=== PATIENT | male | born 1990 | race Caucasian/White ===

== ENCOUNTER 2016-04-23 02:00 | Emergency (ER) | payer OTHER ==
[2016-04-23 03:08] LABS: ACETAMINOPHEN < 10 ug/mL (10-30)
[2016-04-23 07:08] VITALS: BP 120/57
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
== END 2016-04-23 08:20 ==
LOC: FB.ED 02:00
DX: F32.9 Major depressive disorder, single episode, unspecified (principal); F10.129 Alcohol abuse with intoxication, unspecified; F34.1 Dysthymic disorder; X78.9XXA Intentional self-harm by unspecified sharp object, initial encounter; Y90.0 Blood alcohol level of less than 20 mg/100 ml
CPT/HCPCS: 36415; 80053; 80305; 84443; 85025; 93005; 99285; G0479; G0480

== ENCOUNTER 2018-10-27 00:35 | Emergency (ER) | payer OTHER ==
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
[2018-10-27 07:18] VITALS: BP 132/105; PULSE 119
== END 2018-10-27 01:11 | disposition left against medical advice (07) ==
LOC: FB.ED 00:35
DX: Z53.21 Procedure and treatment not carried out due to patient leaving prior to being seen by health care provider (principal)
CPT/HCPCS: 99282

== ENCOUNTER 2018-12-28 02:53 | Emergency (ER) | payer SELFPAY ==
[2018-12-28 04:06] VITALS: BP 140/89; PULSE 110
--- NOTE | 2018-12-28 10:24 | ER ---
DATE SEEN: 12/28/2018 CHIEF COMPLAINT: Depression. HISTORY OF PRESENT ILLNESS: A 28-year-old male who was brought in by taxi. He is not sure why he is here. Apparently, he had been drinking some alcohol and also cut himself on the left arm. He denies any intention to kill himself. However, he endorses depression that he has had since he was 16. In fact, I recently saw him in the clinic about 2 to 3 weeks ago and started him on Prozac 20 mg a day. Tonight, he admits that he had been drinking. He denies any intention to hurt himself. He feels overwhelmed. He lives with his girlfriend and 3 children who called the police today. He took the taxi after the police wanted to bring him in. He states that he does not know why he is here. REVIEW OF SYSTEMS: He denies headache, fever, or chills. All other systems were negative. ALLERGIES: None. SOCIAL HISTORY: He drinks, also a smoker and uses marijuana. PHYSICAL EXAMINATION: VITAL SIGNS: On exam, his blood pressure is 140/89, temperature is 97.0, pulse 110. HEENT: Head: Atraumatic. Eyes: PERRL. SKIN: There are several superficial abrasions on the extensor aspect of the left forearm. MENTAL STATUS: He has good eye contact. He is inebriated, but alert and answers questions well. Suicidal ideation and plan were convincingly denied. LABORATORY DATA: White cell count was normal. He had normal electrolytes. AST and ALT were 42 and 95 respectively. His urine drug screen was positive for marijuana and alcohol level was 0.19. IMPRESSION: 1. Major depression. 2. Marijuana abuse. 3. Alcohol intoxication. PLAN: I eventually consulted Richard Samuels, but the patient voluntarily walked away and signed a consent to not be treated. I did not feel that he is any danger of himself at this time to hold him against his will. /[id number] AJ/MIKEYL
== END 2018-12-28 03:46 | disposition left against medical advice (07) ==
LOC: FB.ED 02:53
DX: F10.129 Alcohol abuse with intoxication, unspecified (principal); S50.812A Abrasion of left forearm, initial encounter; F32.9 Major depressive disorder, single episode, unspecified; F12.10 Cannabis abuse, uncomplicated; F17.200 Nicotine dependence, unspecified, uncomplicated
CPT/HCPCS: 36415; 80053; 80305-QW; 85025; 99283; G0480

== ENCOUNTER 2019-01-10 15:36 | Emergency (ER) | payer SELFPAY ==
--- NOTE | 2019-01-10 16:52 | EDM.PDOCBH ---
ED HPI GENERAL MEDICAL PROBLEM - General Chief Complaint: Behavioral/Psych Stated Complaint: TOOK 12 TYLENOL PILLS AT 4AM Time Seen by Provider: 01/10/19 15:40 Source of Information: Reports: Patient History Limitations: Reports: No Limitations - History of Present Illness INITIAL COMMENTS - FREE TEXT/NARRATIVE: Patient presented to the ED because he wants his acetaminophen level to be checked. He apparently drinks on a daily basis and this morning at 0400 he was so drunk and decide to take 15 tablets of tyleonol(500mg/tab). He said whenever he is drunk, he becomes suicidal. He denies being actively suicidal at this time. There is no associated abdominal pain,nausea/vomiting. He has a poorly treated anxiety,depression which according to him causes all these problems with alcohol and street drugs. - Related Data Allergies Allergy/AdvReac Type Severity Reaction Status Date / Time No Known Allergies Allergy Verified 01/10/19 16:31 Home Meds: Home Meds NK [No Known Home Meds] 01/10/19 [History] Past Medical History - Past Health History Medical/Surgical History: Denies Medical/Surgical History Psychiatric History: Reports: Anxiety, Depression - Past Surgical History HEENT Surgical History: Reports: Tonsillectomy Other Musculoskeletal Surgeries/Procedures:: Hand fracture. Social & Family History - Family History Family Medical History: Unobtainable - Caffeine Use Caffeine Use: Reports: Coffee, Energy Drinks, Soda, Tea ED ROS GENERAL - Review of Systems Review Of Systems: See Below Constitutional: Reports: No Symptoms HEENT: Reports: No Symptoms Respiratory: Reports: No Symptoms Cardiovascular: Reports: No Symptoms Endocrine: Reports: No Symptoms GI/Abdominal: Reports: No Symptoms : Reports: No Symptoms Musculoskeletal: Reports: No Symptoms Skin: Reports: No Symptoms, Wound Neurological: Reports: No Symptoms ED EXAM, BEHAVIORAL HEALTH - Physical Exam Exam: See Below Exam Limited By: Combative/Threatening General Appearance: Alert, WD/WN, No Apparent Distress Ears: Normal External Exam, Normal Canal, Hearing Grossly Normal Nose: Normal Inspection, Normal Mucosa, No Blood Throat/Mouth: Normal Inspection, Normal Lips, Normal Teeth, Normal Gums, Normal Oropharynx, Normal Voice, No Airway Compromise Head: Atraumatic, Normocephalic Neck: Normal Inspection, Supple, Non-Tender Respiratory/Chest: No Respiratory Distress, Lungs Clear, Normal Breath Sounds Cardiovascular: Normal Peripheral Pulses, Regular Rate, Rhythm, No Edema, No Gallop, No JVD, No Murmur, No Rub GI/Abdominal: Normal Bowel Sounds, Soft, Non-Tender Back Exam: Normal Inspection, Full Range of Motion Psychiatric: Alert, Normal Affect, Normal Cognition, Normal Mood, Oriented. No : Agitated, Homicidal Thoughts, Suicidal Plan COURSE, BEHAVIORAL HEALTH COMP - Course Vital Signs: labs reviewed and discussed with patient and ex acetaminophen level <2 poison control was informed of labs and agreed that patient can be discharged to home ex reassured me that Alberto will return to the ED anytime if he feels suicidal agin,otherwise, he will keep his appointment at [facility] tomorrow Orders, Labs, Meds: Active Orders 24 hr Category Date Time Status DRUG SCREEN, URINE ALERE [URCHEM] Stat Lab 01/10/19 16:22 Ordered THYROXINE (T4) FREE, DIRECT, S Stat Lab 01/10/19 16:05 Received Laboratory Tests 01/10/19 01/10/19 01/10/19 Range/Units 16:05 16:05 16:05 WBC 8.0 (4.5-12.0) X10-3/uL RBC 4.97 (4.30-5.75) x10(6)uL Hgb 16.4 (13.5-17.8) g/dL Hct 47.1 (30.0-51.3) % MCV 94.7 (80-96) fL MCH 33.0 (27.7-33.6) pg MCHC 34.8 (32.2-35.4) g/dL RDW 11.5 (11.5-15.5) % Plt Count 314 (125-369) X10(3)uL MPV 9.1 (7.4-10.4) fL Neut % (Auto) 66.0 (46-82) % Lymph % (Auto) 26.4 (13-37) % Hand % (Auto) 4.4 (4-12) % Eos % (Auto) 3 (1.0-5.0) % Baso % (Auto) 1 (0-2) % Neut # (Auto) 5.3 (1.6-8.3) # Lymph # (Auto) 2.1 (0.6-5.0) # Hand # (Auto) 0.4 (0.0-1.3) # Eos # (Auto) 0.2 (0.0-0.8) # Baso # (Auto) 0.0 (0.0-0.2) # Sodium 140 (135-145) mmol/L Potassium 4.1 (3.5-5.3) mmol/L Chloride 104 (100-110) mmol/L Carbon Dioxide 25 (21-32) mmol/L BUN 10 (7-18) mg/dL Creatinine 1.0 (0.70-1.30) mg/dL Est Cr Clr Drug Dosing TNP Estimated GFR (MDRD) > 60 (>60) BUN/Creatinine Ratio 10.0 (9-20) Glucose 91 (80-116) mg/dL Calcium 9.1 (8.6-10.2) mg/dL Total Bilirubin 0.5 (0.1-1.3) mg/dL AST 18 D (5-25) IU/L ALT 36 D (12-36) U/L Alkaline Phosphatase 67 (56-112) IU/L Total Protein 7.7 (6.0-8.0) g/dL Albumin 4.3 (3.5-5.2) g/dL Globulin 3.4 g/dL Albumin/Globulin Ratio 1.3 Amylase (25-115) U/L Lipase (73-393) U/L TSH, Ultra Sensitive (0.36-3.74) IU/mL Salicylates 3.3 (<2.8) mg/dL Acetaminophen < 2 L (<2) ug/mL Ethyl Alcohol (<0.03) % 01/10/19 01/10/19 01/10/19 Range/Units 16:05 16:06 16:06 WBC (4.5-12.0) X10-3/uL RBC (4.30-5.75) x10(6)uL Hgb (13.5-17.8) g/dL Hct (30.0-51.3) % MCV (80-96) fL MCH (27.7-33.6) pg MCHC (32.2-35.4) g/dL RDW (11.5-15.5) % Plt Count (125-369) X10(3)uL MPV (7.4-10.4) fL Neut % (Auto) (46-82) % Lymph % (Auto) (13-37) % Hand % (Auto) (4-12) % Eos % (Auto) (1.0-5.0) % Baso % (Auto) (0-2) % Neut # (Auto) (1.6-8.3) # Lymph # (Auto) (0.6-5.0) # Hand # (Auto) (0.0-1.3) # Eos # (Auto) (0.0-0.8) # Baso # (Auto) (0.0-0.2) # Sodium (135-145) mmol/L Potassium (3.5-5.3) mmol/L Chloride (100-110) mmol/L Carbon Dioxide (21-32) mmol/L BUN (7-18) mg/dL Creatinine (0.70-1.30) mg/dL Est Cr Clr Drug Dosing Estimated GFR (MDRD) (>60) BUN/Creatinine Ratio (9-20) Glucose (80-116) mg/dL Calcium (8.6-10.2) mg/dL Total Bilirubin (0.1-1.3) mg/dL AST (5-25) IU/L ALT (12-36) U/L Alkaline Phosphatase (56-112) IU/L Total Protein (6.0-8.0) g/dL Albumin (3.5-5.2) g/dL Globulin g/dL Albumin/Globulin Ratio Amylase 19 L (25-115) U/L Lipase 82 (73-393) U/L TSH, Ultra Sensitive 1.58 (0.36-3.74) IU/mL Salicylates (<2.8) mg/dL Acetaminophen (<2) ug/mL Ethyl Alcohol < 0.03 (<0.03) % Departure - Departure Time of Disposition: 16:50 Disposition: Home, Self-Care 01 Condition: Good Clinical Impression: Suicidal ideation - Discharge Information Instructions: Suicidal Feelings: How to Help Yourself Referrals: Tony Kyle MD [Primary Care Provider] - Forms: ED Department Discharge Additional Instructions: Please read discharge instructions on suicidal ideation Return to the ED any time if you feel like you're suicidal again Keep your appointment at [facility] tomorrow - My Orders Last 24 Hours: My Active Orders 01/10/19 16:05 THYROXINE (T4) FREE, DIRECT, S Stat 01/10/19 16:22 DRUG SCREEN, URINE ALERE [URCHEM] Stat - Assessment/Plan Last 24 Hours: My Active Orders 01/10/19 16:05 THYROXINE (T4) FREE, DIRECT, S Stat 01/10/19 16:22 DRUG SCREEN, URINE ALERE [URCHEM] Stat
[2019-01-10 17:57] VITALS: BP 129/78; PULSE 73
== END 2019-01-10 17:00 | disposition home or self-care (01) ==
LOC: FB.ED 15:36
DX: T39.1X2A Poisoning by 4-Aminophenol derivatives, intentional self-harm, initial encounter (principal)
CPT/HCPCS: 36415; 80053; 82150; 83690; 84439; 84443; 85025; 99284; G0480

== ENCOUNTER 2019-06-06 17:16 | Emergency (ER) | payer MEDICAID, OTHER ==
[2019-06-06 17:26] VITALS: BP 136/92; PULSE 95
[2019-06-06] MEDS ORDERED: Ibuprofen 600 MG Tab PO ONE (17:38)
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
== END 2019-06-06 18:28 | disposition home or self-care (01) ==
LOC: FB.ED 17:16
DX: S62.346A Nondisplaced fracture of base of fifth metacarpal bone, right hand, initial encounter for closed fracture (principal); W22.8XXA Striking against or struck by other objects, initial encounter
CPT/HCPCS: 29125; 73110-RT; 73130-RT; 99283-25; A9270-GY

== ENCOUNTER 2019-10-13 19:12 | Emergency (ER) | payer MEDICAID ==
[2019-10-13 19:33] VITALS: BP 138/94; PULSE 111
[2019-10-13] MEDS ORDERED: Lidocaine/EPINEPHrine/Tetracaine Soln 5 ML Each TOP ONE (19:38)
--- NOTE | 2019-10-13 19:59 | EDM.PDOC ---
ED HPI GENERAL MEDICAL PROBLEM - General Chief Complaint: Laceration Stated Complaint: LACERATION - Related Data Allergies Allergy/AdvReac Type Severity Reaction Status Date / Time No Known Allergies Allergy Verified 06/06/19 17:49 Home Meds: Home Meds NK [No Known Home Meds] 01/10/19 [History] Past Medical History Cardiovascular History: Reports: None Respiratory History: Reports: None Gastrointestinal History: Reports: None Genitourinary History: Reports: None Musculoskeletal History: Reports: None Neurological History: Reports: None Psychiatric History: Reports: Anxiety, Depression Endocrine/Metabolic History: Reports: None Hematologic History: Reports: None Oncologic (Cancer) History: Reports: None Dermatologic History: Reports: None - Infectious Disease History Infectious Disease History: Reports: None - Past Surgical History HEENT Surgical History: Reports: Tonsillectomy Other Musculoskeletal Surgeries/Procedures:: Hand fracture. Social & Family History - Family History Family Medical History: Unobtainable - Caffeine Use Caffeine Use: Reports: Coffee, Energy Drinks, Soda, Tea Course - Vital Signs Last Recorded V/S: Last Vital Signs Temp 36.8 C 10/13/19 19:27 Pulse 111 H 10/13/19 19:27 Resp 18 10/13/19 19:27 BP 138/94 H 10/13/19 19:27 Pulse Ox 98 10/13/19 19:27 - Orders/Labs/Meds Meds: Medications Discontinued Medications Generic Name Dose Route Start Last Admin Trade Name Gala PRN Reason Stop Dose Admin Lidocaine/Tetracaine 10 ml 10/13/19 19:38 10/13/19 19:43 Let Soln TOP 10/13/19 19:39 10 ml ONETIME ONE Administration Departure - Discharge Information Referrals: PCP,None [Primary Care Provider] - Sepsis Event Note (ED) - Evaluation Sepsis Screening Result: No Definite Risk - Focused Exam Vital Signs: Vital Signs Temp Pulse Resp BP Pulse Ox 10/13/19 19:27 36.8 C 111 H 18 138/94 H 98
--- NOTE | 2019-10-13 22:37 | PCM.SN.2 ---
- Free Text/Narrative Note: Patient is a 28 YO WM who presented to the ED because of incised wound over the mid phalanx of the 3rd,4th,5th finger of the rt hand. He accidantally cut it with a knife. LET was applied to the wound and pressure dressing. he plan was to suture the wound when all of a sudden patient decided not to have the procedure done. He said the pain and the bleeding stopped and he decided not to have the stitching. He signed an AMA document.
== END 2019-10-13 22:05 | disposition left against medical advice (07) ==
LOC: FB.ED 19:12
DX: Z53.21 Procedure and treatment not carried out due to patient leaving prior to being seen by health care provider (principal)
CPT/HCPCS: A9270-GY

== ENCOUNTER 2019-10-14 02:15 | Emergency (ER) | payer MEDICAID ==
[2019-10-14] MEDS ORDERED: Lidocaine 1% 20 ML MDV INFILT ONE (02:16)
[2019-10-14] MEDS ORDERED: Lidocaine/EPINEPHrine/Tetracaine Soln 5 ML Each TOP ONE (02:19)
[2019-10-14 02:22] VITALS: BP 131/87; PULSE 100
[2019-10-14] MEDS ORDERED: Cephalexin 500 MG Cap PO ONE (03:27)
[2019-10-14] MEDS ORDERED: Acetaminophen 500 MG Tab PO ONE (03:27)
[2019-10-14] MEDS ORDERED: Ibuprofen 800 MG Tab PO ONE (03:27)
--- NOTE | 2019-10-14 03:36 | EDM.PDOC ---
ED HPI GENERAL MEDICAL PROBLEM - General Chief Complaint: Laceration Stated Complaint: HAND LACERATION Time Seen by Provider: 10/14/19 02:25 Source of Information: Reports: Patient History Limitations: Reports: No Limitations - History of Present Illness INITIAL COMMENTS - FREE TEXT/NARRATIVE: Patient presented to the ED because he accidentally cut the mid pahalanc of his right 3rd,4th,5th finger. He is able to extend and flex the fingers but with pain. Right Finger-Thumb Pain Score (Numeric/FACES): 7 - Related Data Allergies Allergy/AdvReac Type Severity Reaction Status Date / Time No Known Allergies Allergy Verified 06/06/19 17:49 Home Meds: Home Meds Ibuprofen 800 mg PO Q8H PRN #30 tablet 10/14/19 [Rx] cephALEXin [Keflex] 500 mg PO Q8H #30 cap 10/14/19 [Rx] Past Medical History Cardiovascular History: Reports: None Respiratory History: Reports: None Gastrointestinal History: Reports: None Genitourinary History: Reports: None Musculoskeletal History: Reports: None Neurological History: Reports: None Psychiatric History: Reports: Addiction, Anxiety, Bipolar, Depression, Suicide Attempt Endocrine/Metabolic History: Reports: None Hematologic History: Reports: None Oncologic (Cancer) History: Reports: None Dermatologic History: Reports: None - Infectious Disease History Infectious Disease History: Reports: None - Past Surgical History HEENT Surgical History: Reports: Tonsillectomy Other Musculoskeletal Surgeries/Procedures:: Hand fracture. Social & Family History - Family History Family Medical History: Unobtainable - Tobacco Use Smoking Status *Q: Current Every Day Smoker Years of Tobacco use: 12 Packs/Tins Daily: 1.5 - Caffeine Use Caffeine Use: Reports: Soda - Alcohol Use Days Per Week of Alcohol Use: 4 Number of Drinks Per Day: 5 Total Drinks Per Week: 20 Date of Last Drink: 10/13/19 Time of Last Drink: 19:00 - Recreational Drug Use Recreational Drug Use: No ED ROS GENERAL - Review of Systems Review Of Systems: See Below Constitutional: Reports: No Symptoms HEENT: Reports: No Symptoms Respiratory: Reports: No Symptoms Cardiovascular: Reports: No Symptoms Endocrine: Reports: No Symptoms GI/Abdominal: Reports: No Symptoms : Reports: No Symptoms Musculoskeletal: Reports: No Symptoms Skin: Reports: Wound ED EXAM, SKIN/RASH Exam: See Below Exam Limited By: No Limitations General Appearance: Alert, No Apparent Distress Ears: Normal External Exam, Normal Canal, Hearing Grossly Normal Nose: Normal Inspection, Normal Mucosa Throat/Mouth: Normal Inspection, Normal Lips, Normal Teeth, Normal Gums Head: Atraumatic, Normocephalic Neck: Normal Inspection, Supple, Non-Tender, Full Range of Motion Respiratory/Chest: No Respiratory Distress, Lungs Clear, Normal Breath Sounds Cardiovascular: Normal Peripheral Pulses, Regular Rate, Rhythm, No Edema GI/Abdominal: Normal Bowel Sounds, Soft, Non-Tender, No Organomegaly Extremities: Normal Inspection, Normal Range of Motion Neurological: Alert, Oriented, CN II-XII Intact, Normal Cognition Psychiatric: Normal Affect Location, Skin: Other (see wound) ED SKIN PROCEDURES - Laceration/Wound Repair Right Digit - 3rd (Middle) Appearance: Superficial, Clean (No suturing was done because the wound was superficial) Skin Prep: Chlorhexidine (Hibiciens) Right Digit - 4th (Ring) Appearance: Subcutaneous Distal NVT: Neuro & Vascular Intact Local Anesthesia - Lidocaine (Xylocaine): 1% Plain Local Anesthetic Volume: 2cc Skin Prep: Chlorhexidine (Hibiciens) Closed with: Sutures Lac/Wound length In cm: 2 Suture Size: 4-0 Suture Type: Other (chromic cut gut) Right Digit - 5th (Baby) Appearance: Subcutaneous Anesthetic Type: Local Local Anesthesia - Lidocaine (Xylocaine): 1% Plain Local Anesthetic Volume: 2cc Skin Prep: Chlorhexidine (Hibiciens) Lac/Wound length In cm: 2 Suture Size: 4-0 Suture Type: Other (chromic cut gut) Course - Vital Signs Text/Narrative:: UTD with immunization Last Recorded V/S: Last Vital Signs Temp 36.5 C 10/14/19 02:19 Pulse 100 10/14/19 02:19 Resp 20 10/14/19 02:19 BP 131/87 10/14/19 02:19 Pulse Ox 100 10/14/19 02:19 - Orders/Labs/Meds Meds: Medications Discontinued Medications Generic Name Dose Route Start Last Admin Trade Name Freq PRN Reason Stop Dose Admin Acetaminophen 1,000 mg 10/14/19 03:27 10/14/19 03:34 Tylenol Extra Strength PO 10/14/19 03:28 1,000 mg ONETIME ONE Administration Cephalexin 500 mg 10/14/19 03:27 10/14/19 03:34 Keflex PO 10/14/19 03:28 500 mg ONETIME ONE Administration Ibuprofen 800 mg 10/14/19 03:27 10/14/19 03:34 Motrin PO 10/14/19 03:28 800 mg ONETIME ONE Administration Lidocaine/Tetracaine 10 ml 10/14/19 02:19 10/14/19 02:31 Let Soln TOP 10/14/19 02:20 10 ml ONETIME ONE Administration Departure - Departure Time of Disposition: 03:30 Disposition: Home, Self-Care 01 Condition: Good Clinical Impression: Laceration - Discharge Information Prescriptions: Ibuprofen 800 mg PO Q8H PRN #30 tablet PRN Reason: Pain cephALEXin [Keflex] 500 mg PO Q8H #30 cap Instructions: Laceration Care, Adult Referrals: PCP,None [Primary Care Provider] - Forms: ED Department Discharge Additional Instructions: Please read discharge instructions on laceration and wound care Do not put any pressure on your right hand for a week, the sutures will be broken and your wound will open up No need to apply any antibiotic ointment because you are taking an oral antibiotic for 10 days The suture will dissolve on it's own after 2 weeks Take ibuprofen 800 mg with tylenol 1000 mg every 8 hours as needed for pain. Take them both at the same time for better pain relief. Take keflex 500 mg every 8 hours for 10 days Follow up with your doctor after 5 days Sepsis Event Note (ED) - Evaluation Sepsis Screening Result: No Definite Risk - Focused Exam Vital Signs: Vital Signs Temp Pulse Resp BP Pulse Ox 10/14/19 02:19 36.5 C 100 20 131/87 100
== END 2019-10-14 03:47 | disposition home or self-care (01) ==
LOC: FB.ED 02:15
DX: S61.212A Laceration without foreign body of right middle finger without damage to nail, initial encounter (principal); S61.216A Laceration without foreign body of right little finger without damage to nail, initial encounter; S61.214A Laceration without foreign body of right ring finger without damage to nail, initial encounter; F17.210 Nicotine dependence, cigarettes, uncomplicated; W26.9XXA Contact with unspecified sharp object(s), initial encounter
CPT/HCPCS: 12002; 99282; A9270; J2001; 99283